=== PATIENT | female | born 1970 | race Caucasian/White ===

== ENCOUNTER 2025-04-29 20:28 | Emergency (ER) | payer OTHER, SELFPAY ==
[2025-04-29 20:31] VITALS: BP 176/104
[2025-04-29] MEDS: ADACEL 0.5 ML IM (22:07)
--- NOTE | 2025-04-29 22:43 | ED.SKININJ ---
HPI-Injury
General
Chief Complaint: Skin Surface Trauma
Source: patient
Exam Limitations: none
Time Seen by Provider: 04/29/25 21:01
Nursing documentation reviewed up to this point in time: agreed with
History of Present Illness-Injury
Is this injury a work related problem?: No
Is pt an associate of [facility]/[place]?: No
Initial Injury comments:
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 Sustained a laceration to plantar surface of right heel. Incident occurred just [employer]ULTANT. Brought to ED by family for eval.
Past History
Past History
ED Past Medical History: None
Review of Systems
Review of Systems
Allergies reviewed?: Yes
All Other Systems: ROS reviewed and negative except as documented in HPI and ROS
Constitutional: Reports no symptoms
Musculoskeletal: Reports no symptoms
Skin: Reports other (Laceration to plantar surface of right heel)
Neurological: Reports no symptoms
Psychiatric: Reports no symptoms
Skin Exam
Laceration
Plantar right heel:
Length in cm: 5
Orientation: horizontal
Type of Laceration: simple
Any active bleeding?: no active bleeding
Distal skin color and temperature: normal-warm & good color
Normal distal neurovascular exam: Yes
Range of motion: full
Phy Exam
General Physical Exam
General Presentation: well appearing and mild distress
General age: appears stated age
General Skin: warm and dry
General Habitus: normal
General Mental: alert
Musculoskeletal Exam
Musculoskeletal Exam: full ROM and neuro vasc intact
Skin Exam
Skin Exam: normal color, warm/dry and no rash
Psychiatric Exam
Psychiatric Exam: normal mood/affect
Course
Orders/Labs/Results
Orders:
Orders
04/29/25 21:54
Tetanus/Diphth/Acelpertussis [Adacel] 0.5 ml IM .ONCE ONE
Vital Signs
Initial and Last Documented VS:
Initial Vital Signs
Temp Pulse Resp BP Pulse Ox
98.2 F 91 15 176/104 97
04/29/25 20:31 04/29/25 20:31 04/29/25 20:31 04/29/25 20:31 04/29/25 20:31
Last Documented Vital Signs
Temp Pulse Resp BP Pulse Ox
98.2 F 91 15 176/104 97
04/29/25 20:31 04/29/25 20:31 04/29/25 20:31 04/29/25 20:31 04/29/25 20:31
Procedures
Laceration Closure
Right plantar heel:
Status of Wound: clean
Description of Wound Edges: sharp
Preparation: cleaned with saline
Anesthesia: 1% Lidocaine with epi
Revision/Debridement: routine- no revision
Wound exploration: explored to base- no FB and no tendon involvement
Type of Closure: single layer closure
Skin Closure Material: 4-0 prolene
*Pulse Oximetry
SaO2: 97
Oxygen Mode of Delivery: Room air
Patient hypoxic: no
*Critical Care Note
Total Time (30-74mins, 75-104mins- exclusive of procedures): Not Applicable
ED Attending Note
-
Portions of this chart may have been created with voice recognition software.� Occasional wrong word or��sound alike� substitutions may have occurred due to the inherent limitations of voice recognition software.
Discharge Plan
Departure
Patient Disposition: Home (Routine Discharge)
Date of Disposition: 04/29/25
Time of Disposition: 21:54
Patient with high blood pressure during this ER visit?: No
Condition: Good
Covid-19: Not Applicable
Discharge Problem:
Laceration of heel
Instructions: Laceration Repair With Stitches (DC), Ibuprofen
Referrals:
UNKNOWN - PT DOES,NOT KNOW [Family Provider]
Activity Restrictions/Additional Instructions:
Sutures can be removed in 7-10 days by your family doctor.
Interventions
Interventions:
*Risk Screen - Suicide Last Done: 04/29/25 20:31
*General Assessment Last Done: 04/29/25 20:31
*Neglect/Abuse Screening Last Done: 04/29/25 20:31
*ED- Fall Risk Assessment Last Done: 04/29/25 22:00
*ED COVID-19 Vaccine History Last Done: 04/29/25 22:00
*Nursing Disposition Last Done: 04/29/25 22:24
ED-Skin Assessment Last Done: 04/29/25 22:23
Discharge Date and Time
Discharge Date/Time: 04/29/25 22:25
Print Language: SCOTTISH
== END 2025-04-29 22:25 | disposition home or self-care (01) ==
LOC: EMR 20:28
PROVIDERS: EMERGENCY PHYSICIAN Student in an Organized Health Care Education/Training Program
DX: S91.311A Laceration without foreign body, right foot, initial encounter (principal); W26.9XXA Contact with unspecified sharp object(s), initial encounter; Z23 Encounter for immunization
CPT/HCPCS: 99282; 12002; 90471; 90715